=== PATIENT | female | born 1965 | race Caucasian/White ===

== ENCOUNTER 2017-06-15 19:22 | Emergency (ER) | payer OTHER ==
[~2017-06-15] VITALS: Ht 167.6 cm; Wt 59.2 kg
[~2017-06-15 19:22] MED LIST: DPPI400
[2017-06-15 19:29] VITALS: Ht 167.6 cm; Wt 59.2 kg
--- NOTE | 2017-06-15 20:59 | EMERGENCY ROOM VISIT NOTE ---
History Report prepared by Leilani: Kevin Connor Under the Supervision of: Dr. Eliceo Sanchez M.D. First contact with patient: 20:50 Chief Complaint: ABDOMINAL PAIN Stated Complaint: BAD PAINS IN STOMACH Nursing Triage Summary: lower pelvic pain getting worse today and "burning" c/o frequent 'poops' today voided in the ED upon arrival and states it feels better but still has pain History of Present Illness The patient is a 51 year old female with a history of a kidney stone and ovarian cyst burst who presents to the Emergency Room with complaints of resolved mid-abdominal pain that started around 3 hours ago. She says that the pain was starting to radiate to her left flank. The patient describes the pain as a stabbing and burning sensation. She adds that she was nauseated as well with some abdominal bloating. She notes that she had frequent small bowel movements today. She says that when she got here, the pain resolved, and she currently feels fine. She denies any fevers, chills, shortness of breath, chest pain, diarrhea, back pain, hematochezia, urinary symptoms, vaginal bleeding, or weakness or numbness in her legs. The patient notes that her pain earlier was similar to her previous kidney stone. She denies any chance of . Source of History: patient, spouse/significant other Onset: Around 3 hours ago Position: abdomen Quality: burning, stabbing Timing: resolved Associated Symptoms: + nausea, No fevers, No chills, No chest pain, No SOB, No back pain, No melena, No hematochezia, No diarrhea, No urinary symptoms, No weakness (legs), No numbness (legs) Note: Associated symptoms: Frequent small bowel movements today. Abdominal bloating. Left flank pain. Denies vaginal bleeding. Review of Systems See HPI for pertinent positives & negatives. A total of 10 systems reviewed and were otherwise negative. Past Medical & Surgical Medical Problems: (1) No pertinent past medical history Old medical records were reviewed. Nurse's notes were reviewed and I agree with. Family History Patient reports no known family medical history. Social History Smoking Status: Never Smoker Drug Use: none Housing Status: lives with family Current/Historical Medications No Active Prescriptions or Reported Meds Allergies Coded Allergies: No Known Allergies (Verified , 06/15/17) Physical Exam Vital Signs Date Time Temp Pulse Resp B/P (MAP) Pulse Ox O2 Delivery O2 Flow Rate FiO2 06/15/17 21:01 37.0 83 18 139/91 98 06/15/17 19:29 37.0 83 18 139/91 98 Room Air Physical Exam General: Well developed well nourished non ill appearing middle aged female in no acute distress, breathing comfortably on room air. Normal speech HEENT: Normal cephalic atraumatic. Pupils are equal round and reactive to light. Extraocular movements are intact. Oropharynx is pink with moist mucous membranes. No swelling of the mouth lips or tongue. Neck: Supple with a midline trachea. No meningeal signs or stiffness, no JVD or bruits. No Stridor. Chest: Clear to auscultation bilaterally. No wheezes or rhonchi. No increased work of breathing. Heart: regular rate and rhythm. Abdomen: Soft nontender, nondistended without rebound guarding or rigidity. Extremities: No cyanosis clubbing or edema. No calf tenderness or assymetry Spine/Back. Non tender to palpation. No CVA tenderness Skin: Good turgor without rashes. Neurologic exam: Cranial nerves two through 12 are intact. Motor and sensation are intact and symmetrical throughout. Medical Decision & Procedures Laboratory Results Test 06/15/17 19:39 Urine Color YELLOW Urine Appearance CLOUDY (CLEAR) Urine pH 5.5 (4.5-7.5) Urine Specific [place] 1.014 (1.000-1.030) Urine Protein 1+ (NEG) Urine Glucose (UA) NEG (NEG) Urine Ketones NEG (NEG) Urine Occult Blood 3+ (NEG) Urine Nitrite NEG (NEG) Urine Bilirubin NEG (NEG) Urine Urobilinogen NEG (NEG) Urine Leukocyte Esterase SMALL (NEG) Urine WBC (Auto) 10-30 /hpf (0-5) Urine RBC (Auto) >30 /hpf (0-4) Urine Hyaline Casts (Auto) 1-5 /lpf (0-5) Urine Epithelial Cells (Auto) >30 /lpf (0-5) Urine Bacteria (Auto) 1+ (NEG) Laboratory studies as stated above per my review. ED Course 2050: Past medical records reviewed. The patient was evaluated in room B2, and a complete history and physical examination were performed. The patient verbally expressed understanding and agreement of the treatment plan. The patient will be discharged. Medical Decision Differentials include, but are not limited to; kidney stone, infection, pyelonephritis, ovarian cyst, . Medication Reconciliation: I attest that I have personally reviewed the patient' s current medication list. Blood Pressure Screening: Patient was found to have a slightly elevated blood pressure due to circumstances. I do not believe that the patient requires hypertension monitoring. This patient comes in as described above. She had a sudden onset of severe abdominal pain radiating towards her left flank. She has a history kidney stones. She feels better now and does not want any further workup. A urinalysis with a dip does show blood and 1+ white cells. She's no urinary symptoms. She has nothing to suggest fever or infection otherwise. It's possible that she did pass a stone and that's what she thinks. I would agree Because she had severe pain and now she feels better abdomen is benign. She has no peritonitis. I offered do further workup including blood work and hydration and imaging, she adamantly declines and wants to go home . She said she will return if she has worsening of symptoms or any new problems or concerns. I did encourage her follow-up with her regular doctor. The patient her were happy with the plan and she was discharged to home. Impression Primary Impression: Left sided abdominal pain Additional Impression: Kidney stone Scribe Attestation The scribe's documentation has been prepared under my direction and personally reviewed by me in its entirety. I confirm that the note above accurately reflects all work, treatment, procedures, and medical decision making performed by me. Departure Information Dispostion Home / Self-Care Prescriptions No Active Prescriptions or Reported Meds Referrals No Doctor, Assigned (PCP) Patient Instructions My [facility] Additional Instructions REst Drink plenty of fluids REturn if: worsening of symptoms, fever, increasing or further pain, any new problems or concerns Follow-up with your doctor in 1-2 days for recheck Problem Qualifiers
[2017-06-15 21:01] VITALS: BP 139/91; PULSE 83; TEMP 37; O2SAT 98
[2017-06-15 21:10] LABS: URINE APPEARANCE CLOUDY (CLEAR); URINE BILIRUBIN NEG (NEG); URINE COLOR YELLOW; URINE EPITHELIAL CELL AUTO >30 /lpf (0-5); URINE NITRITE NEG (NEG); URINE PH 5.5 (4.5-7.5); URINE SPECIFIC GRAVITY 1.014 (1.000-1.030); UROBILINOGEN NEG (NEG); ZZUR CULT IF INDIC CLEAN CATCH YES
[2017-06-15 21:15] LABS: MANUAL MICROSCOPIC REQUIRED? NO; REVIEW REQ? NO
[2017-06-16] MEDS ORDERED: OXYC1TAB3 PO (12:45)
[2017-06-16] MEDS ORDERED: TAMS0.4C38 PO (12:45)
== END 2017-06-15 21:02 | disposition home or self-care (01) ==
LOC: C.EDB 19:23
DX: R10.84 Generalized abdominal pain (principal); N20.0 Calculus of kidney; Z87.442 Personal history of urinary calculi

== ENCOUNTER 2017-06-16 09:48 | Emergency (ER) | payer OTHER ==
[~2017-06-16] VITALS: Ht 167.6 cm; Wt 59.5 kg
[2017-06-16 09:58] VITALS: TEMP 36.7; Ht 167.6 cm; Wt 59.5 kg
[2017-06-16] MEDS ORDERED: SODIUM CHLORIDE 0.9% 1000ML 1,000 ML IV STA (11:02)
[2017-06-16] MEDS ORDERED: KETOROLAC TROMETHAMINE 30 MG/ML VIAL IV STA (11:02)
[2017-06-16 11:04] LABS: URINE APPEARANCE CLEAR (CLEAR); URINE BILIRUBIN NEG (NEG); URINE COLOR YELLOW; URINE EPITHELIAL CELL AUTO >30 /lpf (0-5); URINE NITRITE NEG (NEG); URINE SPECIFIC GRAVITY 1.014 (1.000-1.030); UROBILINOGEN NEG (NEG); ZZUR CULT IF INDIC CLEAN CATCH YES
[2017-06-16 11:05] LABS: BASO % 0.2 %; BASO ABS # 0.03 K/uL (0-0.2); COMPLETE YES; EOS % 0.8 %; HEMATOCRIT 42.4 % (37-47); IG% 0.2 %; LYMPH % 17.8 %; LYMPH ABS # 2.21 K/uL (1.2-3.4); MEAN CELL VOLUME 93.6 fL (80-100); MEAN CORPUSCULAR HEMOGLOBIN 31.6 pg (25-34); MEAN CORPUSCULAR HGB CONC 33.7 g/dl (32-36); MEAN PLATELET VOLUME 10.5 fL (7.4-10.4); MONO % 7.5 %; NEUT % 73.5 %; PLATELET COUNT 311 K/uL (130-400); RED BLOOD COUNT 4.53 M/uL (4.2-5.4); WHITE BLOOD COUNT 12.45 K/uL (4.8-10.8)
[2017-06-16 11:20] LABS: CALCIUM 9.2 mg/dl (8.5-10.1); CREATININE 0.95 mg/dl (0.60-1.20); POTASSIUM 3.9 mmol/L (3.5-5.1)
[2017-06-16 11:21] LABS: MANUAL MICROSCOPIC REQUIRED? NO; REVIEW REQ? NO
--- NOTE | 2017-06-16 11:37 | DIAGNOSTIC IMAGING REPORT ---
ABD/PELVIS NO IV OR ORAL CONT HISTORY: 51 years-old Female acute left-sided falnk pain w/ blood in UA COMPARISON: CT abdomen 01/23/2009 TECHNIQUE: Multiple axial CT images of the abdomen and pelvis were obtained without contrast. FINDINGS: Linear pleural-based opacity of the inferior segment lingula suggests pleural parenchymal scarring. There is mild dependent subsegmental bibasilar atelectasis. There is no pneumoperitoneum. The imaged inferior cardiac chambers are unremarkable. There is a 7 x 5 mm lesion of the hepatic dome suggesting a cyst which is unchanged. The spleen is diminutive in size. Pancreas and adrenal glands are unremarkable. There is moderate left-sided obstructive uropathy secondary to a 6 x 5 x 9 mm calculus of the proximal left ureter. No right-sided obstructive uropathy. Bilateral nonobstructing renal calculi are present bilaterally, largest which measures 7 mm within the inferior pole right kidney. The largest nonobstructing calculus on the left measures 4 mm. Moderate amount of left-sided perinephric edema is noted. Abdominal aorta demonstrates mild atrophy plaquing. Uterus and adnexa are within normal limits. There is no bulky adenopathy identified. There is no bowel obstruction. The appendix appears normal. Soft tissues are unremarkable. The bones appear intact. IMPRESSION: 1. Moderate left-sided obstructive uropathy secondary to a 6 x 5 x 9 mm calculus of the proximal left ureter. 2. Additional bilateral nonobstructing renal calculi are present. The above report was generated using voice recognition software. It may contain grammatical, syntax or spelling errors. Electronically signed by: Casey Barlow M.D. 06/16/2017 11:35 AM Dictated Date/Time: 06/16/2017 11:29 AM
[2017-06-16 12:41] VITALS: BP 171/102; PULSE 85; O2SAT 100
[2017-06-16] MEDS ORDERED: OXYC1TAB3 PO (12:45)
[2017-06-16] MEDS ORDERED: TAMS0.4C38 PO (12:45)
--- NOTE | 2017-06-16 17:51 | EMERGENCY ROOM VISIT NOTE ---
History Report prepared by Leilani: Marni Caldera Under the Supervision of: Dr. Daniel Garduno D.O. First contact with patient: 10:40 Chief Complaint: ABDOMINAL PAIN Stated Complaint: STOMACH PAIN Nursing Triage Summary: Pt c/o lower abd pain that started yesterday Pt seen in ED last night and UA showed blood. Pt did not have any other testing because she felt better at that time History of Present Illness The patient is a 51 year old female who presents to the Emergency Room with complaints of intermittent, waxing and waning abdominal pain since yesterday. She was seen in the ED last night for these symptoms. She thought that she had a kidney stone and her urinalysis revealed blood. She felt better once she arrived in the ED so she did not want any further testing and wanted to go home. The patient woke up this morning and felt fine. She states that her pain returned once she arrived at work this morning. Her pain is located in her left abdomen and radiates into her back. She describes her pain as burning and rates her current pain as a 4/10 in severity. She has been feeling more bloated than usual over the past few days, but reports a normal BM this morning. Pt denies headache, change in vision, fevers, chest pain, shortness of breath, nausea, vomiting, diarrhea, dysuria, increased urinary urgency or frequency, and melena. She denies any previous abdominal surgeries. The patient reports a personal history of kidney stones and ovarian cysts. She has had lithotripsy in the past. She states that these symptoms feel similar to her previous kidney stone. Source of History: patient Onset: yesterday Position: abdomen (left) Symptom Intensity: 4/10 Quality: burning Timing: intermittent, waxes/wanes Associated Symptoms: + back pain, No headache, No SOB, No nausea, No vomiting, No melena, No diarrhea, No urinary symptoms Review of Systems See HPI for pertinent positives & negatives. A total of 10 systems reviewed and were otherwise negative. Past Medical & Surgical Medical Problems: (1) No pertinent past medical history (2) Ovarian cyst (3) Ovarian cyst rupture Family History FH: cancer Hypertension Social History Smoking Status: Current Every Day Smoker Drug Use: none Marital Status: Housing Status: lives with family Occupation Status: employed Current/Historical Medications Scheduled Tamsulosin Hcl (Flomax), 0.4 MG PO DAILY Scheduled PRN Oxycodone Immediate Rel Tab (Roxicodone Ir), 5 MG PO Q6H PRN for Pain Allergies Coded Allergies: No Known Allergies (Verified , 06/16/17) Physical Exam Vital Signs Date Time Temp Pulse Resp B/P (MAP) Pulse Ox O2 Delivery O2 Flow Rate FiO2 06/16/17 12:41 85 16 171/102 100 Room Air 06/16/17 11:37 88 16 146/101 98 Room Air 06/16/17 09:58 36.7 81 20 149/109 99 Room Air Physical Exam GENERAL: alert, sitting up in bed, disheveled, well appearing, well nourished, no acute distress, non-toxic EYE EXAM: normal conjunctiva OROPHARYNX: no exudate, no erythema, lips, buccal mucosa, and tongue normal and mucous membranes are moist NECK: supple, no nuchal rigidity, no adenopathy, non-tender LUNGS: Clear to auscultation. Normal chest wall mechanics HEART: no murmurs, S1 normal and S2 normal ABDOMEN: abdomen soft, non-tender, normo-active bowel sounds, no masses, no rebound or guarding. BACK: Back is symmetrical on inspection and there is no deformity, no midline tenderness, no CVA tenderness. SKIN: no rashes and no bruising UPPER EXTREMITIES: upper extremities are grossly normal. LOWER EXTREMITIES: No pitting edema. NEURO EXAM: Normal sensorium, cranial nerves II-XII grossly intact, normal speech, no gross weakness of arms, no gross weakness of legs. Medical Decision & Procedures ER Provider Diagnostic Interpretation: Radiology results as stated below per my review and the radiologist's interpretation: ABD/PELVIS NO IV OR ORAL CONT HISTORY: 51 years-old Female acute left-sided falnk pain w/ blood in UA COMPARISON: CT abdomen 01/23/2009 TECHNIQUE: Multiple axial CT images of the abdomen and pelvis were obtained without contrast. FINDINGS: Linear pleural-based opacity of the inferior segment lingula suggests pleural parenchymal scarring. There is mild dependent subsegmental bibasilar atelectasis. There is no pneumoperitoneum. The imaged inferior cardiac chambers are unremarkable. There is a 7 x 5 mm lesion of the hepatic dome suggesting a cyst which is unchanged. The spleen is diminutive in size. Pancreas and adrenal glands are unremarkable. There is moderate left-sided obstructive uropathy secondary to a 6 x 5 x 9 mm calculus of the proximal left ureter. No right-sided obstructive uropathy. Bilateral nonobstructing renal calculi are present bilaterally, largest which measures 7 mm within the inferior pole right kidney. The largest nonobstructing calculus on the left measures 4 mm. Moderate amount of left-sided perinephric edema is noted. Abdominal aorta demonstrates mild atrophy plaquing. Uterus and adnexa are within normal limits. There is no bulky adenopathy identified. There is no bowel obstruction. The appendix appears normal. Soft tissues are unremarkable. The bones appear intact. IMPRESSION: 1. Moderate left-sided obstructive uropathy secondary to a 6 x 5 x 9 mm calculus of the proximal left ureter. 2. Additional bilateral nonobstructing renal calculi are present. The above report was generated using voice recognition software. It may contain grammatical, syntax or spelling errors. Electronically signed by: Casey Barlow M.D. 06/16/2017 11:35 AM Dictated Date/Time: 06/16/2017 11:29 AM Laboratory Results 06/16/17 10:52 Red Blood Count 4.53, Mean Corpuscular Volume 93.6, Mean Corpuscular Hemoglobin 31.6, Mean Corpuscular Hemoglobin Concent 33.7, Mean Platelet Volume 10.5, Neutrophils (%) (Auto) 73.5, Lymphocytes (%) (Auto) 17.8, Monocytes (%) (Auto) 7.5, Eosinophils (%) (Auto) 0.8, Basophils (%) (Auto) 0.2, Neutrophils # (Auto) 9.16, Lymphocytes # (Auto) 2.21, Monocytes # (Auto) 0.93, Eosinophils # (Auto) 0.10, Basophils # (Auto) 0.03 06/16/17 10:52 Test 06/16/17 10:50 06/16/17 10:52 Urine Color YELLOW Urine Appearance CLEAR (CLEAR) Urine pH 5.0 (4.5-7.5) Urine Specific [place] 1.014 (1.000-1.030) Urine Protein NEG (NEG) Urine Glucose (UA) NEG (NEG) Urine Ketones NEG (NEG) Urine Occult Blood 3+ (NEG) Urine Nitrite NEG (NEG) Urine Bilirubin NEG (NEG) Urine Urobilinogen NEG (NEG) Urine Leukocyte Esterase TRACE (NEG) Urine WBC (Auto) 1-5 /hpf (0-5) Urine RBC (Auto) 0-4 /hpf (0-4) Urine Hyaline Casts (Auto) 0 /lpf (0-5) Urine Epithelial Cells (Auto) >30 /lpf (0-5) Urine Bacteria (Auto) 1+ (NEG) Urine Test NEG (NEG) White Blood Count 12.45 K/uL (4.8-10.8) Red Blood Count 4.53 M/uL (4.2-5.4) Hemoglobin 14.3 g/dL (12.0-16.0) Hematocrit 42.4 % (37-47) Mean Corpuscular Volume 93.6 fL (80-100) Mean Corpuscular Hemoglobin 31.6 pg (25-34) Mean Corpuscular Hemoglobin Concent 33.7 g/dl (32-36) Platelet Count 311 K/uL (130-400) Mean Platelet Volume 10.5 fL (7.4-10.4) Neutrophils (%) (Auto) 73.5 % Lymphocytes (%) (Auto) 17.8 % Monocytes (%) (Auto) 7.5 % Eosinophils (%) (Auto) 0.8 % Basophils (%) (Auto) 0.2 % Neutrophils # (Auto) 9.16 K/uL (1.4-6.5) Lymphocytes # (Auto) 2.21 K/uL (1.2-3.4) Monocytes # (Auto) 0.93 K/uL (0.11-0.59) Eosinophils # (Auto) 0.10 K/uL (0-0.5) Basophils # (Auto) 0.03 K/uL (0-0.2) RDW Standard Deviation 44.1 fL (36.4-46.3) RDW Coefficient of Variation 12.9 % (11.5-14.5) Immature Granulocyte % (Auto) 0.2 % Immature Granulocyte # (Auto) 0.02 K/uL (0.00-0.02) Anion Gap 5.0 mmol/L (3-11) Est Creatinine Clear Calc Drug Dose 65.5 ml/min Estimated GFR () 80.4 Estimated GFR (Non- 69.4 BUN/Creatinine Ratio 12.0 (10-20) Calcium Level 9.2 mg/dl (8.5-10.1) Total Bilirubin 0.4 mg/dl (0.2-1) Direct Bilirubin 0.1 mg/dl (0-0.2) Aspartate Amino Transf (AST/SGOT) 10 U/L (15-37) Alanine Aminotransferase (ALT/SGPT) 17 U/L (12-78) Alkaline Phosphatase 94 U/L (45-117) Total Protein 7.9 gm/dl (6.4-8.2) Albumin 4.2 gm/dl (3.4-5.0) Lipase 194 U/L (73-393) Laboratory results per my review. Medications Administered Medications (Trade) Dose Ordered Sig/[place]ph[place] Route Start Time Stop Time Status Last Admin Dose Admin Sodium Chloride 1,000 ml @ 999 mls/hr Q1H1M STAT IV 06/16/17 11:02 06/16/17 12:02 DC 06/16/17 11:08 999 MLS/HR Ketorolac Tromethamine (Toradol Inj) 30 mg NOW STAT IV 06/16/17 11:02 06/16/17 11:03 DC 06/16/17 11:08 30 MG ED Course ED COURSE: Vital signs were reviewed and showed hypertensive The patients medical record was reviewed The above diagnostic studies were performed and reviewed. ED treatments and interventions as stated above. 1045: The patient was evaluated in room C4. A complete history and physical examination was performed. 1102: Toradol 30 mg IV, NSS 1000 ml @ 999 mls/hr IV 1216: I reassessed the patient and she does not want anything else for pain at this time. 1223: I discussed the patient's case with Dr. Lawrence of urology. She will follow-up as an outpatient in the office. 1248: Upon reevaluation, the patient is feeling better and resting comfortably. I discussed my findings with the patient and she understands and agrees with the treatment plan. Based on the patients age, coexisting illnesses, exam and lab findings the decision to treat as an outpatient was made. The patient remained stable while under my care. The patient appeared well at the time of discharge. Medical Decision Differential diagnoses includes but is not limited to gastritis, peptic ulcer disease, GERD, gallbladder disease, pancreatitis, small bowel obstruction, acute coronary syndrome, pericarditis, ischemic bowel, irritable bowel disease, irritable bowel syndrome, appendicitis, diverticulitis, malignancy, hernia, urinary tract infection, torsion, /ectopic , perforation, trauma, infectious. Medication Reconciliation: I attest that I have personally reviewed the patient' s current medication list. Blood Pressure Screening: The patient was found to have a slightly elevated blood pressure due to circumstances. I do not believe that the patient requires hypertension monitoring. Patient is a 51-year-old female who presents the ER for left flank pain. She was seen here yesterday and she left following just a UA as her pain completely resolved. Today CAT scan shows a 6 mm x 9 mm obstructing proximal left ureteral stone. Pain was controlled with Toradol. No signs of infection. Discussed with urology and patient will follow-up. Patient is adamant that she is going on vacation this coming week. I stressed the importance that she will likely not pass this on her own and need intervention. Patient accepted the risk and will likely go on vacation tomorrow to [place]. She was discharged on OxyIR and Flomax to follow-up with urology. Discussed with Pt concerning signs and symptoms to watch out for. Pt was instructed to follow up with their PCP and discussed with the patient their option to return to the ED at anytime for persistent or worsening symptoms. The appropriate anticipatory guidance and out-patient management, including indications for return to the emergency department, were explained at length to the patient and understood. [place] Drug Monitoring Program Drug Monitoring Findings: Unable to view the patient in PDMP. Consults Time Called: 1219 Consulting Physician: Dr. Lawrence Returned Call: 1223 I discussed the patient's case with Dr. Lawrence of urology. She will follow-up as an outpatient in the office. Impression Primary Impression: Renal colic on left side Scribe Attestation The scribe's documentation has been prepared under my direction and personally reviewed by me in its entirety. I confirm that the note above accurately reflects all work, treatment, procedures, and medical decision making performed by me. Departure Information Dispostion Home / Self-Care Prescriptions Tamsulosin Hcl (FLOMAX) 0.4 Mg Cap 0.4 MG PO DAILY, #10 CAP Prov: Daniel Garduno, DO 06/16/17 Oxycodone Immediate Rel Tab (ROXICODONE IR) 5 Mg Tab 5 MG PO Q6H Y for Pain, #14 TAB Prov: Daniel Garduno, DO 06/16/17 Referrals No Doctor, Assigned (PCP) Jennifer Lawrence MD Forms Call Back Authorization, HOME CARE DOCUMENTATION FORM, IMPORTANT VISIT INFORMATION Patient Instructions ED Stone Renal W Colic, My [facility] Additional Instructions Please follow up with your primary care doctor with in the next 24 hours. Any worsening of your symptoms, please return to the ED immediately. This includes fevers greater than 100.4, worsening pain, persistent nausea vomiting, or any other concerning signs or symptoms from your standpoint. When you leave please contact urology as you will most likely not past this 6 x 9 mm stone on your own.
== END 2017-06-16 12:58 | disposition home or self-care (01) ==
LOC: C.EDB 09:50 → C.EDC 12:58
DX: N23 Unspecified renal colic (principal); F17.200 Nicotine dependence, unspecified, uncomplicated; Z87.442 Personal history of urinary calculi

== ENCOUNTER → 2017-09-14 | Outpatient (CLI) | payer OTHER ==
[~2017-09-14] MED LIST changes: -DPPI400; +OXYC1TAB3 PO
--- NOTE | 2017-09-15 13:42 | MAMMOGRAPHY REPORT ---
BILATERAL DIGITAL SCREENING MAMMOGRAM TOMOSYNTHESIS WITH CAD: 09/14/2017 CLINICAL HISTORY: Routine screening. Patient has no complaints. TECHNIQUE: Breast tomosynthesis in addition to standard 2D mammography was performed. Current study was also evaluated with a Computer Aided Detection (CAD) system. COMPARISON: Comparison is made to exams dated: 06/29/2016 mammogram, 03/17/2015 mammogram, 11/05/2013 m ammogram, 06/22/2012 mammogram, 09/15/2010 mammogram - [facility], and 11/25/2008. BREAST COMPOSITION: The tissue of both breasts is heterogeneously dense, which may obscure small mas ses. FINDINGS: No suspicious masses, calcifications, or areas of architectural distortion are noted in ei ther breast. There has been no significant interval change compared to prior exams. IMPRESSION: ACR BI-RADS CATEGORY 1: NEGATIVE There is no mammographic evidence of malignancy. A 1 year screening mammogram is recommended. The pa tient will receive written notification of the results. Approximately 10% of breast cancers are not detected with mammography. A negative mammographic report should not delay biopsy if a clinically suggestive mass is present. Holly Hart M.D. ah/:09/14/2017 16:34:03 Pharmacy Buyer: Shilpi PERRY(Chirssie)(M), [facility] letter sent: Normal 1/2 BI-RADS Code: ACR BI-RADS Category 1: Negative
== END | disposition home or self-care (01) ==
LOC: C.MAMM 16:16
PROVIDERS: ATTEND Family Medicine
DX: Z12.31 Encounter for screening mammogram for malignant neoplasm of breast (principal)